=== PATIENT | male | born 1990 | race African-American/Black ===

== ENCOUNTER 2018-10-22 08:31 | Emergency (ER) | payer OTHER ==
[~2018-10-22] VITALS: Ht 172.7 cm; Wt 100.0 kg
[2018-10-22] MEDS ORDERED: ASPI-964 PO (08:39)
[2018-10-22 09:08] VITALS: BP 143/99
== END 2018-10-22 10:34 | disposition home or self-care (01) ==
LOC: ER 08:31
DX: R06.02 Shortness of breath (principal); I10 Essential (primary) hypertension; F12.10 Cannabis abuse, uncomplicated; R51 Headache; Z79.82 Long term (current) use of aspirin; Z98.890 Other specified postprocedural states
CPT/HCPCS: 71045; 93005; 99283; Z7610

== ENCOUNTER 2019-06-27 11:55 | Emergency (ER) | payer OTHER ==
[~2019-06-27] VITALS: Ht 172.7 cm; Wt 95.0 kg
[~2019-06-27 11:55] MED LIST: ASPI-964 PO
[2019-06-27] MEDS ORDERED: KETOROLAC 60MG/2ML VIAL IM ONE (16:00)
[2019-06-27] MEDS ORDERED: IBUPROFEN 600MG TABLET PO ONE (16:15)
[2019-06-27 16:37] VITALS: BP 125/87
== END 2019-06-27 16:39 | disposition home or self-care (01) ==
LOC: ER 11:55
DX: S16.1XXA Strain of muscle, fascia and tendon at neck level, initial encounter (principal); R07.81 Pleurodynia; I10 Essential (primary) hypertension; V43.52XA Car driver injured in collision with other type car in traffic accident, initial encounter; Y93.89 Activity, other specified; Y92.410 Unspecified street and highway as the place of occurrence of the external cause
CPT/HCPCS: 99282